=== PATIENT | female | born 1980 | race Two or more races ===

== ENCOUNTER 2018-01-25 15:27 | Emergency (ER) | payer MEDICAID ==
[~2018-01-25] VITALS: Ht 160 cm; Wt 59.0 kg
[2018-01-25 15:40] VITALS: BP 121/51
== END 2018-01-25 15:58 | disposition home or self-care (01) ==
LOC: ER 15:32
DX: S61.511A Laceration without foreign body of right wrist, initial encounter (principal); X58.XXXA Exposure to other specified factors, initial encounter; Y93.89 Activity, other specified; Y92.89 Other specified places as the place of occurrence of the external cause; Y99.8 Other external cause status
CPT/HCPCS: 12001